=== PATIENT | male | born 1985 | race African-American/Black ===

== ENCOUNTER 2019-02-21 18:59 | Emergency (ER) | payer OTHER ==
[~2019-02-21] VITALS: Ht 185.4 cm; Wt 79.4 kg
[2019-02-21 19:05] VITALS: BP 105/67
[2019-02-21] MEDS ORDERED: GENVOYA TABLET1 EACH PO (19:09)
[2019-02-21] MEDS ORDERED: ZYPREXA2.5 MG PO (19:10)
[2019-02-21] MEDS ORDERED: DOXYCYCLINE 10100 MG PO ×2 (19:32→19:39)
[2019-02-21] MEDS ORDERED: CLEOCIN HCL150 MG PO (19:32)
== END 2019-02-21 19:45 | disposition home or self-care (01) ==
LOC: M.ERS 18:59
DX: M79.632 Pain in left forearm (principal); L53.9 Erythematous condition, unspecified; E11.9 Type 2 diabetes mellitus without complications; Z88.0 Allergy status to penicillin

== ENCOUNTER 2019-10-21 01:27 | Emergency (ER) | payer OTHER ==
[~2019-10-21] VITALS: Ht 185.4 cm; Wt 74.8 kg
[~2019-10-21 01:27] MED LIST: CLEOCIN HCL150 MG PO; DOXYCYCLINE 10100 MG PO; GENVOYA TABLET1 EACH PO; ZYPREXA2.5 MG PO
[2019-10-21] MEDS ORDERED: SEROQUEL (01:36)
[2019-10-21 02:32] LABS: URINE BLOOD TRACE (Negative); URINE CLARITY CLEAR; URINE COLOR YELLOW; URINE GLUCOSE-RANDOM NEGATIVE (Negative); URINE KETONES NEGATIVE (Negative); URINE LEUKOCYTES-REFLEX NEGATIVE (Negative); URINE NITRITE-REFLEX NEGATIVE (Negative); URINE PROTEIN 3+ (Negative); URINE SPECIFIC GRAVITY >= 1.030 (1.005-1.030)
[2019-10-21 02:35] LABS: ICTOTEST (BILI CONFIRMATORY) QNS (Negative); URINE BILIRUBIN 1+ (Negative)
[2019-10-21 02:45] LABS: ABSOLUTE LYMPHOCYTES 1.2 thou/uL (0.8-5.3); ABSOLUTE MONOCYTES 0.3 thou/uL (0.0-1.2); ABSOLUTE NEUTROPHILS 1.4 thou/uL (1.6-8.1); BASOPHILS 1.4 %; EOSINOPHILS 1.2 %; HEMATOCRIT 40.5 % (42.0-52.0); HEMOGLOBIN 13.2 gm/dL (14.0-18.0); LYMPHOCYTES 40.7 %; MCH 28.1 pg (26.0-34.0); MCHC 32.6 g/dL (28.0-37.0); MCV 86.2 fL (80.0-100.0); MONOCYTES 11.2 %; MPV 8.7 fl. (7.2-11.1); NUCLEATED RBCS 0 /100WBC; PLATELET COUNT* 215 thou/uL (150-400); POLYS 45.5 %; WBC 3.1 thou/uL (4.0-11.0)
[2019-10-21 02:48] LABS: AMP/METHAMP POSITIVE (Negative); BARBITURATES Negative (Negative); BENZODIAZEPINES Negative (Negative); COCAINE Negative (Negative); METHADONE Negative (Negative); OPIATES Negative (Negative); PCP Negative (Negative); THC Negative (Negative)
[2019-10-21 03:05] LABS: CALCIUM 8.2 mg/dL (8.5-10.1); CREATININE 1.1 mg/dL (0.6-1.3); POTASSIUM 3.7 mmol/L (3.5-5.1)
[2019-10-21 03:10] LABS: ALBUMIN 3.3 g/dL (3.4-5.0); TOTAL BILIRUBIN 0.6 mg/dL (<0.1-1.0); TOTAL PROTEIN 7.5 g/dL (6.4-8.2)
[2019-10-21 03:13] LABS: CASTS None Seen /LPF (None Seen); SQUAMOUS 0-3 Few /LPF (0-3)
[2019-10-21 03:14] LABS: URINE WBC-REFLEX 6-15 Few /HPF (0-5)
[2019-10-21 03:15] LABS: CRYSTALS None Seen /LPF (None Seen); URINE RBC 0-2 Rare /HPF (0-2)
[2019-10-21 03:53] VITALS: BP 115/74
--- NOTE | 2019-10-21 09:14 | EKG ---
[place] [address] ELECTROCARDIOGRAM REPORT Name: RUSSELL AUSTIN Room: 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
== END 2019-10-21 03:53 | disposition home or self-care (01) ==
LOC: M.ERS 01:27
PROVIDERS: Emergency Medicine
DX: R53.1 Weakness (principal); E11.9 Type 2 diabetes mellitus without complications; F31.9 Bipolar disorder, unspecified; Z79.899 Other long term (current) drug therapy; Z88.0 Allergy status to penicillin; F41.9 Anxiety disorder, unspecified

== ENCOUNTER 2019-11-17 06:05 | Emergency (ER) | payer OTHER ==
[~2019-11-17] VITALS: Ht 185.4 cm; Wt 74.8 kg
[~2019-11-17 06:05] MED LIST changes: +SEROQUEL
[2019-11-17 06:25] VITALS: BP 150/95
== END 2019-11-17 06:29 | disposition home or self-care (01) ==
LOC: M.ERS 06:05
DX: F20.0 Paranoid schizophrenia (principal); E11.9 Type 2 diabetes mellitus without complications; F31.9 Bipolar disorder, unspecified; Z88.0 Allergy status to penicillin